=== PATIENT | male | born 1985 | race Caucasian/White ===

== ENCOUNTER 2021-10-21 13:59 | Emergency (ER) | payer BC, OTHER ==
[2021-10-21] MEDS ORDERED: Acetaminophen 500 MG Tab PO ONE (14:33)
[2021-10-21 15:33] LABS: BLOOD UREA NITROGEN,BUN 14 mg/dL (7.0-18.0); CARBON DIOXIDE,CO2 22.7 mmol/L (21.0-32.0); CHLORIDE,CL 107 mmol/L (98-107); GLUCOSE RANDOM 124 mg/dL (74-106); POTASSIUM,K 3.7 mmol/L (3.5-5.1); SODIUM,NA 144 mmol/L (136-148)
[2021-10-21 16:35] VITALS: BP 140/90; PULSE 78
== END 2021-10-21 16:10 | disposition home or self-care (01) ==
LOC: MW.ED 13:59
DX: M25.561 Pain in right knee (principal)
CPT/HCPCS: 36415; 73562; 80048; 85025; 86140; 99283; A9270